=== PATIENT | male | born 1945 | race Caucasian/White ===

== ENCOUNTER 2018-01-23 14:24 | Outpatient (CLI) | payer MEDICARE, OTHER | END 2018-01-23 14:25 | disposition home or self-care (01) | LOC: BICCT 14:24 | PROVIDERS: ATTEND Family Medicine | DX: R91.1 Solitary pulmonary nodule (principal); J32.0 Chronic maxillary sinusitis; J30.2 Other seasonal allergic rhinitis; G47.33 Obstructive sleep apnea (adult) (pediatric) | CPT/HCPCS: 71250 ==

== ENCOUNTER 2018-05-30 09:00 | Outpatient (CLI) | payer MEDICARE, OTHER | END 2018-05-30 09:01 | disposition home or self-care (01) | LOC: CP 09:00 | PROVIDERS: ATTEND Internal Medicine Critical Care Medicine | DX: J84.9 Interstitial pulmonary disease, unspecified (principal); G47.33 Obstructive sleep apnea (adult) (pediatric) | CPT/HCPCS: 94060; 94727; 94729 ==

== ENCOUNTER 2018-10-22 20:30 | Outpatient (CLI) | payer MEDICARE, OTHER | END 2018-10-22 20:31 | disposition home or self-care (01) | LOC: SLEEPLAB 20:30 | PROVIDERS: ATTEND Internal Medicine Critical Care Medicine | DX: G47.33 Obstructive sleep apnea (adult) (pediatric) (principal); R53.83 Other fatigue; R06.83 Snoring; G47.10 Hypersomnia, unspecified; I10 Essential (primary) hypertension; G47.00 Insomnia, unspecified; F32.9 Major depressive disorder, single episode, unspecified | CPT/HCPCS: 95811 ==

== ENCOUNTER 2021-12-02 15:11 | Outpatient (CLI) | payer MEDICARE, OTHER | END 2021-12-02 15:12 | disposition home or self-care (01) | LOC: RAD 15:11 | PROVIDERS: ATTEND Internal Medicine Gastroenterology | DX: R15.9 Full incontinence of feces (principal); K57.30 Diverticulosis of large intestine without perforation or abscess without bleeding; Z86.010 Personal history of colon polyps | CPT/HCPCS: 74280 ==